=== PATIENT | female | born 1995 | race American Indian/Alaskan Native ===

== ENCOUNTER 2017-03-26 20:41 | Emergency (ER) | payer BC, MEDICAID ==
[2017-03-26 21:59] VITALS: BP 108/74
[2017-03-26 23:32] LABS: Basophils % (Auto) 0.7 % (0.0-1.8); Hematocrit 39.6 % (30.3-42.9); Mean Corpuscular HGB Conc 33 % (30-34); Mean Corpuscular Hemoglobin 30 pg (28-32); Mean Corpuscular Volume 91 fl (79-97); Platelet Count 249 K/mm3 (140-440); Red Blood Count 4.35 M/mm3 (3.65-5.03); Red Cell Distribution Width 12.6 % (13.2-15.2); White Blood Count 7.4 K/mm3 (4.5-11.0)
[2017-03-26 23:38] LABS: Anion Gap 19 mmol/L; BUN/Creatinine Ratio 15; Blood Urea Nitrogen 9 mg/dL (7-17); Carbon Dioxide 21 mmol/L (22-30); Chloride 103.7 mmol/L (98-107); Glucose 94 mg/dL (65-100); Potassium 3.7 mmol/L (3.6-5.0); Sodium 140 mmol/L (137-145)
== END 2017-03-27 01:30 | disposition left against medical advice (07) ==
LOC: ED 20:41
DX: R07.9 Chest pain, unspecified (principal); Z53.21 Procedure and treatment not carried out due to patient leaving prior to being seen by health care provider
CPT/HCPCS: 36415; 80048; 84484; 85025; 93005; 93010

== ENCOUNTER 2018-01-04 19:58 | Emergency (ER) | payer SELFPAY ==
--- NOTE | 2018-01-04 20:23 | Emergency Department Report ---
ED Extremity Problem HPI - General Chief complaint: Extremity Injury, Upper Stated complaint: LT HAND INJURY Time Seen by Provider: 01/04/18 20:21 Source: patient, family Mode of arrival: Ambulatory Limitations: No Limitations - History of Present Illness Initial comments: Previously healthy 22-year-old woman presents with injury to her left fifth finger, which occurred when she was going upstairs, fell, and finger was distracted, causing pain and injury with deformity at the left finger. Pain is severe, being 10 out of 10, sharp and aching, localized to the digit. She has no loss of motor function, no coolness to the extremity, has good sensation. She is in good general health, has no other complaints, no other sites of injury. She did not strike her head, did not lose consciousness. - Related Data Home Medications Medication Instructions Recorded Confirmed Last Taken Vits96/Iron Fum/Folic 1 tab PO DAILY 03/11/14 04/30/15 1 Day Ago [ Tablet] ~04/29/15 1 Previous Rx's Medication Instructions Recorded Last Taken Type traMADol [Ultram 50 MG tab] 50 mg PO Q6HR PRN #20 tablet 01/04/18 Unknown Rx Allergies Allergy/AdvReac Type Severity Reaction Status Date / Time No Known Allergies Allergy Verified 03/11/14 06:06 ED Review of Systems ROS: Stated complaint: LT HAND INJURY Other details as noted in HPI ED Past Medical Hx - Past Medical History Previous Medical History?: No Hx Hypertension: No Hx Congestive Heart Failure: No Hx Diabetes: No Hx Deep Vein Thrombosis: No Hx Renal Disease: No Hx Sickle Cell Disease: No Hx Seizures: No Hx Kidney Stones: No Hx Asthma: No Hx COPD: No Hx HIV: No - Surgical History Past Surgical History?: No - Social History Smoking Status: Former Smoker Substance Use Type: None - Medications Home Medications: Home Medications Medication Instructions Recorded Confirmed Last Taken Type Vits96/Iron Fum/Folic 1 tab PO DAILY 03/11/14 04/30/15 1 Day Ago History [ Tablet] ~04/29/15 1 traMADol [Ultram 50 MG tab] 50 mg PO Q6HR PRN #20 tablet 01/04/18 Unknown Rx ED Physical Exam - General Limitations: No Limitations - Orthopedic Joint Reduction Joint #1 Consent Obtained: verbal consent Time Out Performed: Yes Side: left Joint Reduction Location: finger (PIP joint) Analgesia: digital block, other (joint block) Local Anesthetic Used: Bupivicaine 0.25% Amount of Anesthetic Used (mls): 5 Technique Used: traction/counter-traction Post-Reduction Neuro Exam: intact Post-Reduction Vascular Exam: intact Post Reduction X-Ray Obtained: Yes Post Reduction X-Ray Results: reduced Splint Applied: Yes Patient Tolerated Procedure: well ED Medical Decision Making - Radiology Data interpreted by me: Dislocation PIP joint, with small avulsion fracture fragment seen inferior to the distal aspect of proximal phalanx left fifth finger, with likely defect at base of middle phalanx, but no shaft fracture. Remainder of hand digits negative for injury or fracture. Post reduction films, shows normal alignment of middle phalanx on proximal phalanx of left fifth finger, with avulsion fragment still visible inferior to the PIP joint, but no other fracture seen to the shaft or metaphysis of of any phalanges of the left fifth finger. - Medical Decision Making Patient has suffered dislocation of proximal interphalangeal joint of left fifth finger, without fracture, was relocated by direct traction after local anesthesia by direct infiltration and nerve block of 0.25% bupivacaine, with normal relocation on postreduction x-ray. She'll be splinted, treated for mild secondary analgesia, and referred to orthopedics for follow-up in 1-2 weeks. - Differential Diagnosis joint dislocation, phalangeal fracture Critical Care Time: No Critical care attestation.: If time is entered above; I have spent that time in minutes in the direct care of this critically ill patient, excluding procedure time. ED Disposition Clinical Impression: Dislocation of finger, interphalangeal joint, left, closed Qualifiers: Encounter type: initial encounter Qualified Code(s): S63.279A - Dislocation of unspecified interphalangeal joint of unspecified finger, initial encounter Closed avulsion fracture of middle phalanx of finger Qualifiers: Encounter type: initial encounter Qualified Code(s): S62.629A - Displaced fracture of medial phalanx of unspecified finger, initial encounter for closed fracture Disposition: DC-01 TO HOME OR SELFCARE Is pt being admited?: No Does the pt Need Aspirin: No Condition: Stable Instructions: Finger Dislocation (ED), Splint Care (ED) Additional Instructions: There is a small fracture fragment, which came off at the time of the dislocation, and is more like a bad sprain of the ligament of the finger, rather than a distinct break of the bone itself. This is still treated like a dislocation, and splinting provide protection, as well as comfort. He may take the splint off to shower or bathe, but otherwise where it regularly for at least a week. After the first week, he may take it out of the splint several times per day, and gently move the joint, to promote motion, and to prevent stiffness. He will need to see an orthopedist for recheck in about one or 2 weeks, and to have the finger x-rayed again to see how the healing is going. The fracture fragment can remain as it is over the time being, and if this needs any further care, this can be arranged at the decision of the orthopedist. You may apply cool compresses several times per day, 15-30 minutes at a time, and you can take ibuprofen or Tylenol for moderate discomfort, following the directions on the packaging, and we have giving her a prescription so that you can take tramadol for more significant discomfort. You may return to regular activities, but avoid typing with this finger while healing is going on. He should regain use after the first month or so. Prescriptions: traMADol [Ultram 50 MG tab] 50 mg PO Q6HR PRN #20 tablet PRN Reason: Pain Referrals: MAYUR WATKINS MD [Staff Physician] - 3-5 Days Forms: Work/School Release Form(ED) Time of Disposition: 21:35
[2018-01-04] MEDS ORDERED: MORPHINE IV ONE (20:33)
[2018-01-04] MEDS ORDERED: ZOFRAN IV ONE (20:33)
[2018-01-04] MEDS ORDERED: MARCAINE 0.25% INFILTRATI ONE (20:34)
--- NOTE | 2018-01-04 22:20 | XRay Report ---
FINAL REPORT PROCEDURE: XR FINGER(S) 2+V LT TECHNIQUE: LEFT 5th finger radiographs, including AP, lateral, and oblique views. HISTORY: postreduction PIP dislocation COMPARISON: No prior studies are available for comparison. FINDINGS: There is satisfactory alignment 5th proximal interphalangeal joint following closed reduction. An irregular 3.4 millimeter ossific density is noted anterior to the proximal interphalangeal joint consistent with an an avulsion fracture fracture of the base of 5th middle phalanx. This fracture fragment is displaced anteroinferiorly by about 3.4 millimeters. IMPRESSION: Satisfactory alignment post reduction. Avulsion fracture of the base of middle phalanx is noted which is displaced by about 3.4 millimeters.
[2018-01-04 22:29] VITALS: BP 118/64
--- NOTE | 2018-01-04 23:20 | XRay Report ---
FINAL REPORT PROCEDURE: XR FINGER(S) 2+V LT TECHNIQUE: LEFT 5th finger radiographs, including AP, lateral, and oblique views. HISTORY: deformed looking left pinky finger COMPARISON: No prior studies are available for comparison. FINDINGS: Fracture (s) and/or Dislocation(s): There is posterior dislocation of 5th proximal interphalangeal joint associated with 3 millimeter avulsion fracture fragment located anterior to the proximal phalangeal head.. Soft tissues: Normal . Bone mineralization: Normal . Foreign bodies: None . IMPRESSION: Posterior dislocation of 5th proximal interphalangeal joint with a small avulsion fracture arising from the base of 5th middle phalanx.
== END 2018-01-04 22:27 | disposition home or self-care (01) ==
LOC: ED 19:58
DX: S63.279A Dislocation of unspecified interphalangeal joint of unspecified finger, initial encounter (principal); S62.629A Displaced fracture of middle phalanx of unspecified finger, initial encounter for closed fracture; Z87.891 Personal history of nicotine dependence; W10.9XXA Fall (on) (from) unspecified stairs and steps, initial encounter; Y93.89 Activity, other specified; Y99.8 Other external cause status; Y92.89 Other specified places as the place of occurrence of the external cause
CPT/HCPCS: 26770; 73140; 96374; 99283; J2270; J2405